=== PATIENT | male | born 1955 | race Two or more races ===

== ENCOUNTER 2017-02-07 12:40 | Emergency (ER) | payer OTHER ==
[~2017-02-07] VITALS: Ht 185.4 cm; Wt 81.6 kg
[2017-02-07] MEDS ORDERED: fentaNYL 100 mcg/2 mL IV ONE (12:45)
--- NOTE | 2017-02-07 12:55 | Emergency Room Report ---
History of Present Illness General Chief Complaint: Abdominal Pain Source: Patient, EMS Present Illness HPI Patient present with complaints of a hard hernia in the inguinal region He had surgery approximately one month ago on the right side Patient also has a large midline scar Reports that he was on antibiotics from dehiscence of that area The cutely now over the past several hours patient felt that the left hernia has enlarged and now have become hard Pain is 10 out of 10 denies any chest pain or shortness of breath denies any back or flank pain Allergies: Coded Allergies: No Known Allergies (Unverified , 02/07/17) Patient History Past Medical History: see triage record Pertinent Family History: none Reviewed Nursing Documentation: PMH: Agreed, PSxH: Agreed Nursing Documentation-PMH Past Medical History: No History, Except For Hx Hypertension: Yes Review of Systems All Other Systems: negative except mentioned in HPI Physical Exam Vital Signs Date Time Temp Pulse Resp B/P Pulse Ox O2 Delivery O2 Flow Rate FiO2 02/07/17 12:36 98.1 91 22 151/59 99 Room Air Sp02 EP Interpretation: reviewed, normal General Appearance: mild distress - in acute pain Head: normocephalic, atraumatic Eyes: bilateral eye EOMI, bilateral eye PERRL ENT: hearing grossly normal, normal pharynx, TMs + canals normal, uvula midline Neck: full range of motion, supple, no meningismus, no bony tend Respiratory: lungs clear, normal breath sounds, no rhonchi, no respiratory distress, no retraction, no accessory muscle use Cardiovascular #1: normal peripheral pulses, regular rate, rhythm, no edema, no gallop, no JVD, no murmur Gastrointestinal: non-distended, no rebound, other - Patient has a large palpable heart left-sided inguinal hernia, there is also a midline abdominal surgical site, which appears to be secondary healing otherwise abdomen is soft, the right inguinal region also shows a small hernia however there is evidence of surgical healing and patient reports mesh in that area, Genitourinary: no CVA tenderness Musculoskeletal: normal inspection Neurologic: oriented x3, responsive, theoretical physicist III-XII nml as tested, motor strength/ tone normal, sensory intact Psychiatric: mood/affect normal Skin: other - as above Lymphatic: normal inspection, no adenopathy Medical Decision Making Diagnostic Impression: Primary Impression: Hernia Additional Impressions: Hernia, inguinal, left Inguinal hernia with incarceration ER Course With the history exam and presentation, multiple differentials considered, including but not limited to incarcerated hernia , strangulate in hernia , appendicitis, gastritis, cholecystitis, diverticulitis Patient was given sentinel IV in 50 mcg intervals by myself Patient had good pain control After this reduction of the left inguinal hernia was attempted We did have some improvement and there was palpation of the hernia reducing However after the patient grimaces in pain, and increased the intra-abdominal pressure the hernia does recur Given this the patient requires further inpatient care and surgical intervention Secondary to insurance purposes patient is transferred At the time maintaining good appropriate airway, hemodynamically stable Further imaging was not obtained as clinically the patient does have hernia palpable , Patient remained appropriate throughout Continued on pulse ox maintaining 100% oxygen Labs Test 02/07/17 12:45 White Blood Count 6.5 K/UL (4.8-10.8) Red Blood Count 4.37 M/UL (4.70-6.10) Hemoglobin 10.7 G/DL (14.2-18.0) Hematocrit 34.1 % (42.0-52.0) Mean Corpuscular Volume 78 FL (80-99) Mean Corpuscular Hemoglobin 24.5 PG (27.0-31.0) Mean Corpuscular Hemoglobin Concent 31.3 G/DL (32.0-36.0) Red Cell Distribution Width 14.4 % (11.6-14.8) Platelet Count 306 K/UL (150-450) Mean Platelet Volume 7.1 FL (6.5-10.1) Neutrophils (%) (Auto) 53.5 % (45.0-75.0) Lymphocytes (%) (Auto) 27.6 % (20.0-45.0) Monocytes (%) (Auto) 11.7 % (1.0-10.0) Eosinophils (%) (Auto) 5.7 % (0.0-3.0) Basophils (%) (Auto) 1.6 % (0.0-2.0) Prothrombin Time 10.6 SEC (9.30-11.50) Prothromb Time International Ratio 1.0 (0.9-1.1) Activated Partial Thromboplast Time 30 SEC (23-33) Sodium Level 143 mEQ/L (135-145) Potassium Level 4.2 mEQ/L (3.4-4.9) Chloride Level 101 mEQ/L (98-107) Carbon Dioxide Level 29 mEQ/L (20-30) Anion Gap 13 (5-15) Blood Urea Nitrogen 20 mg/dL (7-23) Creatinine 1.6 mg/dL (0.7-1.2) Estimat Glomerular Filtration Rate 44.5 mL/min (>60) Glucose Level 129 mg/dL (74-106) Calcium Level 10.0 mg/dL (8.6-10.2) Total Bilirubin 0.4 mg/dL (0.0-1.2) Aspartate Amino Transf (AST/SGOT) 31 U/L (5-40) Alanine Aminotransferase (ALT/SGPT) 13 U/L (3-41) Alkaline Phosphatase 78 U/L (40-129) Total Protein 8.3 g/dL (6.6-8.7) Albumin 4.3 g/dL (3.5-5.2) Globulin 4.0 g/dL Albumin/Globulin Ratio 1.0 (1.0-2.7) Lipase 31 U/L (< 60) Rhythm Strip Diag. Results EP Interpretation: yes Rate: 66 Rhythm: NSR, no PVC's, no ectopy Last Vital Signs Date Time Temp Pulse Resp B/P Pulse Ox O2 Delivery O2 Flow Rate FiO2 02/07/17 12:36 98.1 91 22 151/59 99 Room Air Status: improved [facility] Condition: Improved BRITTNEY GREEN D.O. February 07, 2017 12:55
[2017-02-07 13:08] LABS: BASOPHILS % (AUTO) 1.6 % (0.0-2.0); EOSINOPHILS % (AUTO) 5.7 % (0.0-3.0); LYMPHOCYTES % (AUTO) 27.6 % (20.0-45.0); MEAN CORPUSCULAR HEMOGLOBIN 24.5 PG (27.0-31.0); MEAN CORPUSCULAR HGB CONC 31.3 G/DL (32.0-36.0); MEAN CORPUSCULAR VOLUME 78 FL (80-99); MEAN PLATELET VOLUME 7.1 FL (6.5-10.1); MONOCYTES % (AUTO) 11.7 % (1.0-10.0); NEUTROPHILS % (AUTO) 53.5 % (45.0-75.0); PLATELET COUNT 306 K/UL (150-450); RED BLOOD COUNT 4.37 M/UL (4.70-6.10); RED CELL DISTRIBUTION WIDTH 14.4 % (11.6-14.8); WHITE BLOOD COUNT 6.5 K/UL (4.8-10.8)
[2017-02-07 13:17] LABS: PROTHROMBIN TIME 10.6 SEC (9.30-11.50)
[2017-02-07 13:25] VITALS: BP 170/82
[2017-02-07 13:27] LABS: CREATININE 1.6 mg/dL (0.7-1.2); GLOMERULAR FILTRATION RATE 44.5 mL/min (>60); POTASSIUM 4.2 mEQ/L (3.4-4.9); TOTAL PROTEIN 8.3 g/dL (6.6-8.7)
[2017-02-07 14:03] VITALS: BP 152/77
[2017-02-07 14:40] VITALS: BP 130/70
== END 2017-02-07 14:40 | disposition short-term general hospital (02) ==
LOC: EDBD 12:40 → EMR 13:00
DX: K40.90 Unilateral inguinal hernia, without obstruction or gangrene, not specified as recurrent (principal); I10 Essential (primary) hypertension
CPT/HCPCS: 36415; 80053; 83690; 85025; 85610; 85730; 96374; 96375; 99285; J3010